=== PATIENT | female | born 1950 | race Caucasian/White ===

== ENCOUNTER 2022-05-11 07:38 | Inpatient (IN) | payer MEDICARE, BC ==
[2022-05-06 16:13] LABS: CLARITY,URINE CLEAR (Clear); COLOR,URINE YELLOW (Yellow); GLUCOSE, URINE 250 mg/dl (Neg); KETONES,URINE NEGATIVE (Neg); LEUKOCYTE ESTERASE ,URINE NEGATIVE (Neg); NITRITES, URINE NEGATIVE (Neg); OCCULT BLOOD,URINE TRACE-INTACT (Neg); PH,URINE 5.5 (4.8-8.0); PROTEIN,URINE NEGATIVE (Neg); UROBILINOGEN,URINE 0.2 E.U/dL (0.2-1.0)
[2022-05-06 16:16] LABS: UA COLLECTION TYPE CLN CATCH MIDSTREAM
[2022-05-06 16:18] LABS: BASOPHILS # (AUTO) 0.1 X10'3 (0-0.2); BASOPHILS % (AUTO) 0.9 % (0-1); EOSINOPHILS # (AUTO) 0.1 X10'3 (0-0.9); EOSINOPHILS % (AUTO) 1.9 % (0-6); LYMPHOCYTES # (AUTO) 2.5 X10'3 (1.1-4.8); LYMPHOCYTES % (AUTO) 36.1 % (21-51); MEAN CORPUSCULAR HGB CONC 33.1 g/dL (33.0-36.5); MEAN CORPUSCULAR VOLUME 102.5 FL (78-98); MONOCYTES # (AUTO) 0.5 X10'3 (0-0.9); MONOCYTES % (AUTO) 7.8 % (2-12); NEUTROPHILS # (AUTO) 3.7 X10'3 (1.8-7.7); NEUTROPHILS % (AUTO) 53.3 % (42-75); PRE OP HEMATOCRIT 41.9 % (35.0-45.0); PRE OP HEMOGLOBIN 13.9 g/dL (12.0-16.0); PRE OP PLATELET COUNT 186 X10'3 (140-440); RED BLOOD COUNT 4.08 X10'6 (4.20-5.60); RED CELL DISTRIBUTION WIDTH 13.3 % (11.5-14.5)
[2022-05-06 16:22] LABS: ALBUMIN 3.8 G/DL (3.4-5.0); ALKALINE PHOSPHATASE 110 IU/L (46-116); BLOOD UREA NITROGEN 19 MG/DL (7-18); BUN/CREATININE RATIO 22.1 (10.0-20.0); CALCIUM 9.2 MG/DL (8.5-10.1); CHLORIDE 105 MMOL/L (99-107); CREATININE 0.86 MG/DL (0.40-0.90); PRE OP ALT 32 U/L (30-65); PRE OP ANION GAP 7 (8-16); PRE OP AST 32 U/L (10-37); PRE OP BILIRUB, TOTAL 0.2 MG/DL (0.0-1.0); PRE OP GLUCOSE 96 MG/DL (70-104); PRE OP POTASSIUM 4.2 MMOL/L (3.4-5.1); PRE OP SODIUM 142 MMOL/L (135-145); TOTAL CARBON DIOXIDE 29.9 MMOL/L (24-32); TOTAL PROTEIN 7.6 G/DL (6.4-8.2); eGFR 65 ML/MIN
[2022-05-06 16:29] LABS: BACTERIA,URINE FEW /HPF (Neg); MUCUS STRANDS NONE SEEN /LPF (Neg); RBC,URINE 0-2 /HPF (0-2); SQUAMOUS EPITHELIAL CELL,UR FEW /LPF (FEW); WBC,URINE 0-4 /HPF (0-4)
[~2022-05-11] VITALS: Ht 170.2 cm; Wt 58.3 kg
[2022-05-11] VITALS (17 sets, daily range): BP systolic 112–144; BP diastolic 59–87
[~2022-05-11 07:38] MED LIST: ATOR10TA87 PO; MULT-1085 PO; VALS160T30 PO; VITA-321 PO; VITA1CAP20 PO; [UNRECOGNIZED DRUG - OTHER] PO; ceFOXitin 2GM-NS 100mL ADDvant 100 ML IV ONE; famotidine 20mg tablet PO ONE
[2022-05-11] MEDS ORDERED: ondansetron/PF 4mg/2ml inj IV PRN ×2 (09:05→11:55)
[2022-05-11] MEDS: Potassium Cl inj 20 MEQ in ringers solution, lacted 1,000 ML IV SCH ×2 (09:05→17:10)
[2022-05-11] MEDS: normal saline 1000ml 1,000 ML IV SCH (09:05)
[2022-05-11] MEDS ORDERED: naloxone 0.4 mg/ml inj IV PRN (09:05)
[2022-05-11] MEDS: ringers solution, lacted 1,000 ML IV SCH ×2 (09:22→22:09)
--- NOTE | 2022-05-11 10:00 | NUR ---
PT HAD CRITICAL BLOOD SUGAR OF 66. ANESTHESIA NOTIFIED. ORDER RECEIVED TO GIVE 1/2 AMP D50 AND RECHECK BLOOD SUGAR IN 20 MINS.
[2022-05-11] MEDS ORDERED: dextrose 50%-water 50ml dispensing syringe IV ONE (10:05)
[2022-05-11] MEDS ORDERED: fentaNYL /PF 50mcg/ml 5ml ampule ONE (10:23)
[2022-05-11] MEDS ORDERED: BUPIVACAINE liposomal/PF 13.3 MG/ML vial IM ONE (10:28)
[2022-05-11] MEDS ORDERED: BUPIVAcaine/PF 2.5 mg/ml (0.25%) 30ml vial ONE ×2 (10:28→11:16)
[2022-05-11] MEDS ORDERED: LIDOcaine 2% (20mg/ml) 5ml vial ONE (10:36)
[2022-05-11] MEDS ORDERED: rocuronium 10mg/ml inj IV ONE (10:36)
[2022-05-11] MEDS ORDERED: dexamethasone sod phosphate 4mg/ml inj. ONE (10:36)
[2022-05-11] MEDS ORDERED: propofol inj 20 ML IV ONE (10:36)
[2022-05-11] MEDS ORDERED: sevoflurane 250ml liquid IH ONE (11:00)
[2022-05-11] MEDS ORDERED: ceFAZolin 1000mg inj ONE (11:16)
[2022-05-11] MEDS ORDERED: acetaminophen 1,000mg/100ml IV 100 ML IV ONE (11:19)
[2022-05-11] MEDS ORDERED: BUPIVAcaine/PF 2.5 mg/ml (0.25%) 30ml vial IJ ONE (11:52)
[2022-05-11] MEDS ORDERED: ceFAZolin 1000mg inj IR ONE (11:53)
[2022-05-11] MEDS ORDERED: HYDROmorphone/PF 0.2 MG/ML SYRINGE IV PRN ×2 (11:55)
[2022-05-11] MEDS ORDERED: ringers solution, lacted 1,000 ML IV SCH (11:55)
[2022-05-11] MEDS ORDERED: morphine 2 MG/ML inj. syringe IV PRN (11:55)
--- NOTE | 2022-05-11 12:58 | NUR ---
Received from OR via [facility] BED , accompanied by Anesthesiologist MJ and report given by Anesthesiolgist. PATIENT WTIH 20G PIV IN LEFT UR RUNNING LR AT 100. DENIES PAIN, [place] DRESSING IS ON AND CDI. NO DRAINAGE PRESENT. SCDS DONNED UPON ARRIVAL. 10L MASK ON WITH 100% SATURATIONS. Addendum: 05/11/22 at 1314 by Alpesh Ortiz RN, RN Amended: Links added.
[2022-05-11] MEDS: HYDROmorph/NS 0.2 mg/ml PCA 100 ML IV SCH ×7 (13:00→23:00)
[2022-05-11] MEDS ORDERED: neostigmine methylsulfate 1 MG/ML 10ml vial ONE (13:32)
[2022-05-11] MEDS ORDERED: ondansetron/PF 4mg/2ml inj ONE (13:32)
[2022-05-11] MEDS ORDERED: glycopyrrolate 0.2mg/ml inj ONE (13:32)
[2022-05-11] MEDS ORDERED: ePHEDrine 50MG/ML INJ. ONE (13:32)
[2022-05-11] MEDS ORDERED: PCA WASTE DOCUMENTATION 1 MG ML MC SCH (14:10)
--- NOTE | 2022-05-11 14:58 | NUR ---
ALL CRITERIA FOR TRANSFER TOT THE FLOOR HAS BEEEN MET. VSS. DENIES PAIN. DRESSING STILL CDI TO ABDOMEN. PATIENT SPOUSE ACCOMPANIED TO THE 3RD FLOOR. FAMILY HAS BELONINGS. HUE CONNOLLY PRESENT TO ACCEPT CARE OF THIS PATIENT. Addendum: 05/11/22 at 1515 by Alpesh Martinez - HUE SWANN Amended: Links added.
--- NOTE | 2022-05-11 15:15 | NUR ---
Patient in room [facility]. I have received report from Alpesh Gaffneyoil recovery operator and had the opportunity to ask questions and assume patient care.
[2022-05-11] MEDS: cefoxitin sod inj 2,000 MG in normal saline 100ml IV soln 100 ML IV SCH (16:18)
--- NOTE | 2022-05-11 18:42 | NUR ---
Problems reprioritized. Patient report given, questions answered & plan of care reviewed with Mychal Gaffney traveler.
[2022-05-11] MEDS: docusate sod 100mg capsule PO SCH (20:00)
[2022-05-11] MEDS: sennosides/docusate sodium tablet PO SCH (20:00)
[2022-05-12] MEDS: cefoxitin sod inj 2,000 MG in normal saline 100ml IV soln 100 ML IV SCH (00:19)
[2022-05-12] MEDS: HYDROmorph/NS 0.2 mg/ml PCA 100 ML IV SCH ×12 (01:00→23:00)
[2022-05-12] MEDS: Potassium Cl inj 20 MEQ in ringers solution, lacted 1,000 ML IV SCH ×3 (01:15→17:25)
[2022-05-12 06:00] VITALS: BP 105/57
[2022-05-12 06:26] LABS: BASOPHILS % (AUTO) 0.1 % (0-1); EOSINOPHILS % (AUTO) 0 % (0-6); HEMATOCRIT 34.7 % (35.0-45.0); HEMOGLOBIN 11.7 g/dl (12.0-16.0); LYMPHOCYTES # (AUTO) 0.9 X10'3 (1.1-4.8); LYMPHOCYTES % (AUTO) 8.3 % (21-51); MEAN CORPUSCULAR HGB CONC 33.7 g/dL (33.0-36.5); MEAN CORPUSCULAR VOLUME 100.9 FL (78-98); MONOCYTES # (AUTO) 0.8 X10'3 (0-0.9); MONOCYTES % (AUTO) 6.7 % (2-12); NEUTROPHILS # (AUTO) 9.6 X10'3 (1.8-7.7); NEUTROPHILS % (AUTO) 84.9 % (42-75); PLATELET COUNT 166 X10'3 (140-440); RED BLOOD COUNT 3.43 X10'6 (4.20-5.60); RED CELL DISTRIBUTION WIDTH 13.1 % (11.5-14.5); WHITE BLOOD COUNT 11.3 X10'3 (4.5-11.0)
[2022-05-12 06:44] LABS: ALBUMIN 2.8 G/DL (3.4-5.0); ANION GAP 6 (8-16); BLOOD UREA NITROGEN 15 MG/DL (7-18); BUN/CREATININE RATIO 19.5 (10.0-20.0); CALCIUM 8.4 MG/DL (8.5-10.1); CHLORIDE 103 MMOL/L (99-107); CREATININE 0.77 MG/DL (0.40-0.90); GLUCOSE 134 MG/DL (70-104); POTASSIUM 4.3 MMOL/L (3.5-5.1); SODIUM 136 MMOL/L (135-145); eGFR 74 ML/MIN
--- NOTE | 2022-05-12 06:47 | NUR ---
Patient in room [facility] 356. I have received report from Mychal SWANN Traveler and had the opportunity to ask questions and assume patient care.
[2022-05-12] MEDS: sennosides/docusate sodium tablet PO SCH ×2 (07:52→20:45)
[2022-05-12] MEDS: docusate sod 100mg capsule PO SCH ×2 (07:52→20:45)
[2022-05-12 10:00] VITALS: BP 118/70
--- NOTE | 2022-05-12 11:50 | NUR ---
JANIE mathew with nurse Beverly
[2022-05-12] MEDS ORDERED: proCHLORperazine 10 MG/2 ml inj IV PRN (14:00)
[2022-05-12 18:00] VITALS: BP 124/69
--- NOTE | 2022-05-12 18:27 | NUR ---
Problems reprioritized. Patient report given, questions answered & plan of care reviewed with Prudence RN.
--- NOTE | 2022-05-12 19:32 | NUR ---
Patient in room [facility] 356. I have received report from MOHSEN SWANN and had the opportunity to ask questions and assume patient care.
[2022-05-12 22:00] VITALS: BP 137/65
[2022-05-13] MEDS: HYDROmorph/NS 0.2 mg/ml PCA 100 ML IV SCH ×3 (01:00→05:00)
[2022-05-13] MEDS: Potassium Cl inj 20 MEQ in ringers solution, lacted 1,000 ML IV SCH (01:30)
[2022-05-13 06:00] VITALS: BP 154/78
[2022-05-13 06:07] LABS: ALBUMIN 3.1 G/DL (3.4-5.0); ANION GAP 5 (8-16); BLOOD UREA NITROGEN 10 MG/DL (7-18); BUN/CREATININE RATIO 14.1 (10.0-20.0); CALCIUM 8.6 MG/DL (8.5-10.1); CHLORIDE 104 MMOL/L (99-107); CREATININE 0.71 MG/DL (0.40-0.90); GLUCOSE 96 MG/DL (70-104); SODIUM 139 MMOL/L (135-145); TOTAL CARBON DIOXIDE 30.5 MMOL/L (24-32); eGFR 81 ML/MIN
[2022-05-13 06:09] LABS: BASOPHILS % (AUTO) 0.3 % (0-1); EOSINOPHILS % (AUTO) 0.4 % (0-6); HEMATOCRIT 33.8 % (35.0-45.0); HEMOGLOBIN 11.5 g/dl (12.0-16.0); LYMPHOCYTES # (AUTO) 1.8 X10'3 (1.1-4.8); LYMPHOCYTES % (AUTO) 24.3 % (21-51); MEAN CORPUSCULAR HEMOGLOBIN 34.1 PG (27.0-31.0); MEAN CORPUSCULAR HGB CONC 33.9 g/dL (33.0-36.5); MEAN CORPUSCULAR VOLUME 100.5 FL (78-98); MEAN PLATELET VOLUME 9.5 FL (7.4-10.4); MONOCYTES # (AUTO) 0.6 X10'3 (0-0.9); MONOCYTES % (AUTO) 8.2 % (2-12); NEUTROPHILS # (AUTO) 5.1 X10'3 (1.8-7.7); NEUTROPHILS % (AUTO) 66.8 % (42-75); PLATELET COUNT 141 X10'3 (140-440); RED BLOOD COUNT 3.36 X10'6 (4.20-5.60); RED CELL DISTRIBUTION WIDTH 12.9 % (11.5-14.5); WHITE BLOOD COUNT 7.6 X10'3 (4.5-11.0)
[2022-05-13 06:19] LABS: POTASSIUM 3.6 MMOL/L (3.5-5.1)
--- NOTE | 2022-05-13 06:23 | NUR ---
Problems reprioritized. Patient report given, questions answered & plan of care reviewed with DAWNA SWANN.
--- NOTE | 2022-05-13 06:52 | NUR ---
Patient in room [facility] 356. I have received report from Tianna SWANN and had the opportunity to ask questions and assume patient care. Pt is sitting high fowlers in bed, and relaxing comfortably. Pt on RA, no s/s of distress. Pt declines c/o pain at this time. Pt on CADD pump, states she dosent use it. Will ask MD to DC CADD and swch to PO pain control. BLL, call light within reach, frequently used items in reach, frequent rounidng, administrative fellow socks on. Will continue to monitor.
[2022-05-13 07:40] VITALS: BP 154/78
[2022-05-13] MEDS: sennosides/docusate sodium tablet PO SCH (08:09)
[2022-05-13] MEDS: docusate sod 100mg capsule PO SCH (08:09)
[2022-05-13] MEDS: normal saline 1000ml 1,000 ML IV SCH (09:09)
[2022-05-13 10:00] VITALS: BP 159/85
[2022-05-13] MEDS ORDERED: traMADol 50MG tablet PO PRN (10:00)
[2022-05-13 12:20] VITALS: BP 159/85
[2022-05-13] MEDS ORDERED: PCA WASTE DOCUMENTATION 1 MG ML MC SCH (13:05)
--- NOTE | 2022-05-13 13:35 | NUR ---
Pt DC'd to personal vehicle, is driving. VSS, Pt afebrile, no issues with medications. Pts PIV to RA removed tip intact no c/o pain to the site. Pt surgical site dressing CDI. Discharge education provided and all discharge questions answered. All personal belongings with Pt.
[2022-05-14] MEDS ORDERED: losartan 50mg tablet PO SCH (08:00)
== END 2022-05-13 13:05 | disposition home or self-care (01) | DRG 331 ==
LOC: PAS IN 07:38 → UNDOADMIN 07:38 → PAS IN 09:14 → SUR 3N 15:09
PROVIDERS: ADMIT Surgery; ATTEND Surgery
PROC: 0DTK4ZZ Resection of Ascending Colon, Percutaneous Endoscopic Approach (ICD-10-PCS; principal; 2022-05-11 11:00)
DX: C18.2 Malignant neoplasm of ascending colon (principal); Z82.49 Family history of ischemic heart disease and other diseases of the circulatory system; Z87.891 Personal history of nicotine dependence; Z90.710 Acquired absence of both cervix and uterus
CPT/HCPCS: 36415; 71046; 80048; 80053; 81001; 82948; 85025; 86885; 86900; 86901; 86920; 87081; 88309; 93005; A4215; A4615; A4618; A6258; A7000; C1758; C9290; G0378; J0131; J0690; J0694; J0780; J1100; J1170; J2405; J2704; J2710; J3010; J3490; J7030; J7120

== ENCOUNTER 2022-05-16 03:32 | Inpatient (IN) | payer MEDICARE, BC ==
[~2022-05-16] VITALS: Ht 170.2 cm; Wt 57.3 kg
[~2022-05-16 03:32] MED LIST changes: -ceFOXitin 2GM-NS 100mL ADDvant 100 ML IV ONE; -famotidine 20mg tablet PO ONE
[2022-05-16] MEDS ORDERED: metoclopramide 5 mg/ml inj IV ONE (04:10)
[2022-05-16] MEDS ORDERED: normal saline 1000ML IV soln IVB ONE (04:10)
--- NOTE | 2022-05-16 05:03 | NUR ---
0500 Pt resting in POC in NAD states nausea just slightly there but much better with no vomiting, jana ice chips well, pend CT
[2022-05-16 05:23] LABS: BASOPHILS % (AUTO) 0.2 % (0-1); EOSINOPHILS % (AUTO) 0 % (0-6); HEMATOCRIT 40.7 % (35.0-45.0); HEMOGLOBIN 13.8 g/dl (12.0-16.0); LYMPHOCYTES # (AUTO) 0.6 X10'3 (1.1-4.8); LYMPHOCYTES % (AUTO) 8.3 % (21-51); MEAN CORPUSCULAR HEMOGLOBIN 33.8 PG (27.0-31.0); MEAN CORPUSCULAR HGB CONC 33.8 g/dL (33.0-36.5); MEAN CORPUSCULAR VOLUME 99.9 FL (78-98); MEAN PLATELET VOLUME 8.9 FL (7.4-10.4); MONOCYTES # (AUTO) 0.2 X10'3 (0-0.9); MONOCYTES % (AUTO) 2.3 % (2-12); NEUTROPHILS # (AUTO) 6.6 X10'3 (1.8-7.7); NEUTROPHILS % (AUTO) 89.2 % (42-75); PLATELET COUNT 181 X10'3 (140-440); RED BLOOD COUNT 4.08 X10'6 (4.20-5.60); RED CELL DISTRIBUTION WIDTH 12.6 % (11.5-14.5); WHITE BLOOD COUNT 7.4 X10'3 (4.5-11.0)
[2022-05-16 05:34] LABS: ALANINE AMINOTRANSFERASE 16 U/L (12-78); ALBUMIN 3.1 G/DL (3.4-5.0); ALBUMIN/GLOBULIN RATIO 0.9 (1.1-1.5); ALKALINE PHOSPHATASE 63 IU/L (46-116); ANION GAP 6 (8-16); ASPARTATE AMINO TRANSFERASE 19 U/L (10-37); BILIRUBIN,TOTAL 0.4 MG/DL (0.1-1.0); BLOOD UREA NITROGEN 26 MG/DL (7-18); BUN/CREATININE RATIO 30.6 (10.0-20.0); CALCIUM 8.7 MG/DL (8.5-10.1); CHLORIDE 102 MMOL/L (99-107); CREATININE 0.85 MG/DL (0.40-0.90); GLUCOSE 143 MG/DL (70-104); LIPASE < 50 U/L (73-393); POTASSIUM 4.1 MMOL/L (3.5-5.1); SODIUM 138 MMOL/L (135-145); TOTAL CARBON DIOXIDE 29.8 MMOL/L (24-32); TOTAL PROTEIN 6.7 G/DL (6.4-8.2); eGFR 66 ML/MIN
[2022-05-16] MEDS ORDERED: iohexol 300mg/ml 100ml inj. ONE (05:43)
[2022-05-16 06:23] LABS: CLARITY,URINE SLIGHTLY CLOUDY (Clear); COLOR,URINE YELLOW (Yellow); GLUCOSE, URINE NEGATIVE (Neg); KETONES,URINE 40 mg/dl (Neg); LEUKOCYTE ESTERASE ,URINE TRACE (Neg); NITRITES, URINE NEGATIVE (Neg); OCCULT BLOOD,URINE NEGATIVE (Neg); PH,URINE 6.5 (4.8-8.0); PROTEIN,URINE 30 mg/dl (Neg); UROBILINOGEN,URINE 0.2 E.U/dL (0.2-1.0)
[2022-05-16] MEDS ORDERED: proCHLORperazine 10 MG/2 ml inj IV ONE (06:30)
[2022-05-16 06:43] LABS: UA COLLECTION TYPE VOIDED
[2022-05-16 06:45] LABS: BACTERIA,URINE 1+ /HPF (Neg); MUCUS STRANDS MODERATE /LPF (Neg); RBC,URINE NONE SEEN /HPF (0-2); SQUAMOUS EPITHELIAL CELL,UR MANY /LPF (FEW)
[2022-05-16 06:46] LABS: WBC,URINE 20-30 /HPF (0-4)
[2022-05-16] MEDS ORDERED: acetaminophen 325mg tablet PO PRN ×2 (09:40)
[2022-05-16] MEDS ORDERED: magnesium hydroxide 30ml (MOM) UD suspension PO PRN (09:40)
[2022-05-16] MEDS ORDERED: ondansetron/PF 4mg/2ml inj IV PRN (09:40)
[2022-05-16] MEDS ORDERED: HYDROcodone/acetaminophen 5mg/325mg tablet PO PRN (09:40)
[2022-05-16] MEDS ORDERED: mag hydrox/Alum hydrox/simeth 30ml oral suspension PO PRN (09:40)
[2022-05-16] MEDS ORDERED: morphine 2 MG/ML inj. syringe IV PRN ×2 (09:40)
[2022-05-16] MEDS: dextrose 5%-1/2 normal saline 1,000 ML IV SCH ×2 (10:25→22:43)
[2022-05-16] MEDS: metoclopramide 5 mg/ml inj IV SCH ×2 (14:23→20:59)
--- NOTE | 2022-05-16 17:10 | NUR ---
Received report from HUE Smith. Awaiting patient arrival to room 345B.
--- NOTE | 2022-05-16 17:36 | NUR ---
Received patient to room 345B via wheelchair accompanied by x1 staff. Patient oriented to room and call light. Call light placed within patient's reach. Bed low and locked.
[2022-05-16 17:54] VITALS: BP 148/80
--- NOTE | 2022-05-16 18:28 | NUR ---
Problems reprioritized. Patient report given, questions answered & plan of care reviewed with Yeimy Ma.
[2022-05-16] MEDS: docusate sod 100mg capsule PO SCH (20:59)
[2022-05-16 22:00] VITALS: BP 139/80
[2022-05-17] MEDS: metoclopramide 5 mg/ml inj IV SCH ×3 (02:42→13:33)
[2022-05-17] MEDS: dextrose 5%-1/2 normal saline 1,000 ML IV SCH (05:40)
[2022-05-17 06:01] LABS: BASOPHILS % (AUTO) 0.2 % (0-1); EOSINOPHILS % (AUTO) 0.1 % (0-6); HEMOGLOBIN 12.3 g/dl (12.0-16.0); LYMPHOCYTES # (AUTO) 1.3 X10'3 (1.1-4.8); LYMPHOCYTES % (AUTO) 14.4 % (21-51); MEAN CORPUSCULAR HGB CONC 34.1 g/dL (33.0-36.5); MEAN CORPUSCULAR VOLUME 99.6 FL (78-98); MEAN PLATELET VOLUME 8.7 FL (7.4-10.4); MONOCYTES # (AUTO) 0.8 X10'3 (0-0.9); MONOCYTES % (AUTO) 8.9 % (2-12); NEUTROPHILS % (AUTO) 76.4 % (42-75); PLATELET COUNT 200 X10'3 (140-440); RED BLOOD COUNT 3.61 X10'6 (4.20-5.60); RED CELL DISTRIBUTION WIDTH 12.7 % (11.5-14.5); WHITE BLOOD COUNT 9.2 X10'3 (4.5-11.0)
--- NOTE | 2022-05-17 06:09 | NUR ---
Problems reprioritized. Patient report given, questions answered & plan of care reviewed with HUE STEVEN.
[2022-05-17 06:16] LABS: ALBUMIN 2.9 G/DL (3.4-5.0); ANION GAP 6 (8-16); BLOOD UREA NITROGEN 27 MG/DL (7-18); CALCIUM 8.3 MG/DL (8.5-10.1); CHLORIDE 102 MMOL/L (99-107); CREATININE 0.75 MG/DL (0.40-0.90); GLUCOSE 139 MG/DL (70-104); POTASSIUM 3.7 MMOL/L (3.5-5.1); SODIUM 136 MMOL/L (135-145); eGFR 76 ML/MIN
[2022-05-17 06:37] VITALS: BP 116/66
--- NOTE | 2022-05-17 06:49 | NUR ---
Patient in room [facility]. I have received report from HUE Ma and had the opportunity to ask questions and assume patient care.
[2022-05-17] MEDS: docusate sod 100mg capsule PO SCH (07:28)
--- NOTE | 2022-05-17 07:45 | NUR ---
Patient reports having a bowel movement at 0745 and described it as small, dark brown, hard, and small amounts. Patient denied dark tarry stool or any pain or discomfort while voiding.
[2022-05-17] MEDS ORDERED: enoxaparin 40mg/0.4ml syringe SUBCUT SCH (08:00)
[2022-05-17 10:00] VITALS: BP 136/82
--- NOTE | 2022-05-17 11:25 | NUR ---
PER RUSU PT IS GOOD TO BE DC HE WILL BE PUTTING IN THE DISCHARGE.
--- NOTE | 2022-05-17 14:26 | NUR ---
SERVICE WRITER ADVISOR documentation: I have reviewed and agree with all interventions, assessments performed and documented by NIKI ESCOBAR II.
[2022-05-17] MEDS ORDERED: METO-292 PO (14:49)
--- NOTE | 2022-05-17 15:55 | NUR ---
Patient stable for discharge. Pt had no personal belongings, signed all d/c documents. IV dc'd. Patient assisted out in wheelchair with present. patient left in private vehicle.
== END 2022-05-17 15:38 | disposition home or self-care (01) | DRG 394 ==
LOC: ER 03:32 → ED HOLD 09:39 → SUR 3N 17:32
PROVIDERS: ADMIT Internal Medicine; ATTEND Internal Medicine
PROC: BW211ZZ Computerized Tomography (CT Scan) of Abdomen and Pelvis using Low Osmolar Contrast (ICD-10-PCS; principal; 2022-05-16)
DX: K91.89 Other postprocedural complications and disorders of digestive system (principal); C18.9 Malignant neoplasm of colon, unspecified; K56.609 Unspecified intestinal obstruction, unspecified as to partial versus complete obstruction; K56.7 Ileus, unspecified; D36.7 Benign neoplasm of other specified sites; Y83.8 Other surgical procedures as the cause of abnormal reaction of the patient, or of later complication, without mention of misadventure at the time of the procedure; E78.5 Hyperlipidemia, unspecified; Z79.899 Other long term (current) drug therapy; Z80.9 Family history of malignant neoplasm, unspecified; Z87.891 Personal history of nicotine dependence; Z90.710 Acquired absence of both cervix and uterus; Y92.89 Other specified places as the place of occurrence of the external cause
CPT/HCPCS: 36415; 74177; 80048; 80053; 81001; 82948; 83690; 85025; 87081; 99285; G0378; J0780; J1650; J2765; J3490; J7030; Q9967